=== PATIENT | female | born 1990 | race Two or more races ===

== ENCOUNTER 2020-01-02 18:33 | Emergency (ER) | payer MEDICAID ==
[~2020-01-02] VITALS: Ht 167.6 cm; Wt 61.2 kg
--- NOTE | 2020-01-02 18:48 | NUR ---
biblapd and [id number], homeless, running through traffic screaming. PT CONTINUOUSLY YELLING AT EMS AND ED STAFF. NON COMBATIVE. DENIES MEDICAL COMPLAINTS. NO ACUTE DISTRESS NOTED. RR EVEN AND UNLABORED ON RA. READY FOR EVAL.
[2020-01-02] MEDS ORDERED: LORAZEPAM INJ 2 MG/ML VIAL ONE (19:17)
--- NOTE | 2020-01-02 19:25 | NUR ---
IM RD ATIVAN 2MG GIVEN ORDERED BY MD LEE
[2020-01-02] MEDS ORDERED: LORAZEPAM INJ 2 MG/ML VIAL IM ONE (19:30)
[2020-01-02 19:33] LABS: APPEARANCE,URINE Clear (CLEAR); BILIRUBIN,URINE Negative (NEGATIVE); BLOOD, URINE Negative Ery/uL (NEGATIVE); COLOR,URINE Yellow (YELLOW); KETONES,URINE Negative (NEGATIVE); LEUKOCYTE ESTERASE ,URINE Negative (NEGATIVE); NITRITE, URINE Negative (NEGATIVE); PROTEIN,URINE Negative (NEGATIVE); UGLUCOSE Negative (NEGATIVE); UROBILINOGEN,URINE 0.2 EU/dL (0.2)
[2020-01-02 20:27] LABS: BASOPHILS % (AUTO) 0.2 % (0.0-2.0); EOSINOPHILS % (AUTO) 0.1 % (0.0-6.0); HEMATOCRIT 41 % (33-45); HEMOGLOBIN 13.4 g/dL (11.5-14.8); LYMPHOCYTES # (AUTO) 2.6 /CMM (0.8-4.8); LYMPHOCYTES % (AUTO) 18.5 % (20.0-44.0); MEAN CORPUSCULAR HGB CONC 33 g/dl (31.0-36.0); MEAN CORPUSCULAR VOLUME 92 fL (82-100); MONOCYTES # (AUTO) 0.8 /CMM (0.1-1.30); MONOCYTES % (AUTO) 5.6 % (2.0-12.0); NEUTROPHILS # (AUTO) 10.4 /CMM (1.8-8.9); NEUTROPHILS % (AUTO) 75.6 % (43.0-81.0); PLATELET COUNT (AUTO) 261 /CMM (150-450); RED BLOOD CELL COUNT(AUTO) 4.43 MIL/uL (4.0-5.2); WHITE BLOOD COUNT (AUTO) 13.8 K/uL (4.3-11.0)
[2020-01-02 20:37] LABS: CALCIUM, SERUM 9.4 mg/dL (8.5-10.1); CREATININE 0.8 mg/dL (0.6-1.3); POTASSIUM 3.8 mmol/L (3.5-5.1)
[2020-01-02 20:48] LABS: BILIRUBIN,DIRECT 0.1 mg/dL (0.0-0.2); BILIRUBIN,TOTAL 0.4 mg/dL (0.2-1.0); TOTAL PROTEIN, SERUM 7.8 g/dL (6.4-8.2)
[2020-01-02 20:51] LABS: SALICYLATE 2.4 mg/dL (2.8-20.0)
--- NOTE | 2020-01-02 21:15 | NUR ---
PT GIVEN FOOD
[2020-01-02] MEDS ORDERED: HALOPERIDOL LACTATE INJ 5 MG/ML VIAL ONE (21:22)
[2020-01-02] MEDS ORDERED: diphenhydrAMINE HCL 50 MG/ML VIAL ONE (21:22)
[2020-01-02] MEDS ORDERED: diphenhydrAMINE HCL 50 MG/ML VIAL IM ONE (21:30)
[2020-01-02] MEDS ORDERED: HALOPERIDOL LACTATE INJ 5 MG/ML VIAL IM ONE (21:30)
--- NOTE | 2020-01-02 22:14 | NUR ---
PT REQUESTED MORE FOOD. PT REC'D A SANDWICH AND JUICE. PT IS TOLERATING PO WELL.
--- NOTE | 2020-01-02 22:52 | NUR ---
PT ASLEEP IN BED. VSS. WILL CONT TO MONITOR.
--- NOTE | 2020-01-03 02:00 | NUR ---
TOOK OVER PT CARE. PT RESTING WELL. PROVIDED WITH FOOD AND BLANKETS. Pt ambulated to restroom. vss.
--- NOTE | 2020-01-03 03:24 | NUR ---
Patient is resting comfortably in bed. Easily aroused. VSS.
--- NOTE | 2020-01-03 04:35 | NUR ---
Patient is resting comfortably in bed. Easily aroused. VSS.
--- NOTE | 2020-01-03 06:19 | NUR ---
Patient is resting comfortably in bed.
--- NOTE | 2020-01-03 08:15 | NUR ---
Social service consult requested by MD for overdose and possible homelessness. Per MD notes, pt is a 29-year-old female, who presented to the ER yesterday evening because she was found running in traffic screaming. Pt was brought in by paramedics and [employer]. OPEN DEVELOPER OPERATOR and pt's RN Good met with the pt bedside. Pt is alert and oriented x 4. Pt reports, to not remembering being belligerent and running into traffic. Pt is not very cooperative. Pt denies being homeless and provided an address. Pt kept insisting on getting her belongings and leaving. Pt declined any and all resources. Pt's toxicology was positive for cocaine and Benzo's. Pt declined to sign homeless patient waiver form. Pt. was given her belongings and a TAP card. No other social service needs are requested at time. MD and pt's RN are aware of pt's discharge plan.
--- NOTE | 2020-01-03 08:32 | NUR ---
PATIENT DENIES BEING HOMELESS, WAS ABLE TO PROVIDE AN ADDRESS AT [place]. REFUSED TO SIGN WAIVER. NO IV HEPLOCK. PATIENT AMBULATORY WITH STEADY GAIT, A/OX4, BREATHING EVEN AND UNLABORED, NO SOB NOTED. GIVEN TAP CARD, SEEN BY HOT METAL CHARGER JAMESON AND REFUSED ANY RESOURCES. OFFERED FOOD BUT PATIENT REFUSED. PATIENT HAS ADEQUATE CLOTHING. PATIENT GIVEN HER BELONGINGS. Patient discharged to home in stable condition. Written and verbal after care instructions given. Patient verbalizes understanding of instruction.
[2020-01-03 08:36] VITALS: BP 128/73
== END 2020-01-03 08:36 | disposition home or self-care (01) ==
LOC: ER 18:35
DX: F29 Unspecified psychosis not due to a substance or known physiological condition (principal); F19.10 Other psychoactive substance abuse, uncomplicated; R45.1 Restlessness and agitation; R41.82 Altered mental status, unspecified; R00.0 Tachycardia, unspecified
CPT/HCPCS: 36415; 80048; 80076; 80305; 80307; 80329; 81001; 84702; 85025; 96372 ×2; 99284; G0480; J1200; J1630; J2060; 81000-TC

== ENCOUNTER 2021-02-26 20:33 | Emergency (ER) | payer MEDICAID ==
[~2021-02-26] VITALS: Ht 167.6 cm; Wt 67.6 kg
--- NOTE | 2021-02-26 20:42 | NUR ---
DIANE FROM STREET C/O BIZARRE BEHAVIOR. PT AWAKE ON ARRIVAL. NOTED TACHYCARDIA, MD AWARE. RESPIRATIONS EVEN AND UNLABORED. PLACED IN GOWN AND ON MONITOR, WILL CONTINUE TO MONITOR
[2021-02-26] MEDS ORDERED: LORAZEPAM 1 MG TABLET ONE (20:54)
[2021-02-26] MEDS ORDERED: LORAZEPAM 1 MG TABLET PO ONE (21:00)
--- NOTE | 2021-02-26 21:40 | NUR ---
TAPPER BIT AT BEDSIDE FOR BLOOD DRAW
[2021-02-26 21:50] LABS: BILIRUBIN,URINE NEGATIVE (NEGATIVE); COLOR,URINE YELLOW (YELLOW); LEUKOCYTE ESTERASE ,URINE NEGATIVE (NEGATIVE); NITRITE, URINE NEGATIVE (NEGATIVE); PH,URINE 7.5 (5.0-8.0); PROTEIN,URINE NEGATIVE (NEGATIVE); UGLUCOSE NEGATIVE (NEGATIVE); UROBILINOGEN,URINE 0.2 EU/dL (0.2)
[2021-02-26 22:00] LABS: BASOPHILS % (AUTO) 0.7 % (0.0-2.0); EOSINOPHILS % (AUTO) 0.4 % (0.0-6.0); HEMATOCRIT 38 % (33-45); HEMOGLOBIN 12.7 g/dL (11.5-14.8); LYMPHOCYTES # (AUTO) 1.9 /CMM (0.8-4.8); LYMPHOCYTES % (AUTO) 29.1 % (20.0-44.0); MEAN CORPUSCULAR HGB CONC 33 g/dl (31.0-36.0); MEAN CORPUSCULAR VOLUME 92 fL (82-100); MONOCYTES # (AUTO) 0.3 /CMM (0.1-1.30); MONOCYTES % (AUTO) 4.3 % (2.0-12.0); NEUTROPHILS # (AUTO) 4.3 /CMM (1.8-8.9); NEUTROPHILS % (AUTO) 65.5 % (43.0-81.0); PLATELET COUNT (AUTO) 219 /CMM (150-450); RED BLOOD CELL COUNT(AUTO) 4.13 MIL/uL (4.0-5.2); WHITE BLOOD COUNT (AUTO) 6.6 K/uL (4.3-11.0)
[2021-02-26 22:13] LABS: CALCIUM, SERUM 9.1 mg/dL (8.5-10.1); CREATININE 0.7 mg/dL (0.6-1.3); POTASSIUM 3.6 mmol/L (3.5-5.1)
[2021-02-26 22:28] LABS: ALBUMIN 3.8 g/dL (3.4-5.0); BILIRUBIN,DIRECT 0.1 mg/dL (0.0-0.2); BILIRUBIN,TOTAL 0.3 mg/dL (0.2-1.0); TOTAL PROTEIN, SERUM 7.2 g/dL (6.4-8.2)
--- NOTE | 2021-02-26 23:00 | NUR ---
PT MEDICALLY CLEARED FOR DISCHARGE AT THIS TIME. Patient discharged to home in stable condition. Written and verbal after care instructions given. Patient verbalizes understanding of instruction.Pt ambulatory with a steady gait
[2021-02-26 23:34] VITALS: BP 116/54
== END 2021-02-26 23:15 | disposition home or self-care (01) ==
LOC: ER 20:35
DX: R41.82 Altered mental status, unspecified (principal)
CPT/HCPCS: 36415; 80048-TC; 80076-TC; 84703-TC; 85025-TC; G0480